=== PATIENT | female | born 1970 | race Two or more races ===

== ENCOUNTER 2016-11-11 17:34 | Emergency (ER) | payer SELFPAY ==
[~2016-11-11] VITALS: Ht 162.6 cm; Wt 62.0 kg
[2016-11-11] MEDS ORDERED: IBUPROFEN 600MG TABLET PO ONE (19:00)
[2016-11-11] MEDS ORDERED: KETOROLAC 60MG/2ML VIAL IM ONE (20:45)
[2016-11-11 21:11] VITALS: BP 122/77
== END 2016-11-11 22:00 | disposition home or self-care (01) ==
LOC: ER 17:35
DX: G44.209 Tension-type headache, unspecified, not intractable (principal); F20.9 Schizophrenia, unspecified
CPT/HCPCS: 96372; 99283; J1885

== ENCOUNTER 2016-11-11 22:15 | Emergency (ER) | payer MEDICAID ==
[~2016-11-11] VITALS: Ht 160 cm; Wt 65.0 kg
[2016-11-11 22:53] VITALS: BP 116/83
== END 2016-11-12 | disposition left against medical advice (07) ==
LOC: ER 22:15
DX: M54.5 Low back pain (principal); M79.605 Pain in left leg; I10 Essential (primary) hypertension